=== PATIENT | female | born 1985 | race Caucasian/White ===

== ENCOUNTER 2017-11-01 18:46 | Emergency (ER) | payer OTHER ==
[~2017-11-01] VITALS: Ht 157.5 cm; Wt 98.5 kg
[~2017-11-01 18:46] MED LIST: NAPR550 PO; PREN0.01 PO; SENN1TAB11 PO
[2017-11-01 18:47] VITALS: BP 174/82; PULSE 72; RESP 12; TEMP 98.1; O2SAT 99
[2017-11-01] MEDS ORDERED: cream (19:26)
[2017-11-01] MEDS ORDERED: MULTTAB67 PO (19:26)
[2017-11-01] MEDS ORDERED: CEPHALEXIN MONOHYDRATE 500 MG CAP PO ONE (21:30)
[2017-11-01] MEDS ORDERED: MUPIROCIN 2% OINT 22 GM TUBE TOPICAL ONE (21:30)
[2017-11-01] MEDS ORDERED: MUPI2OIN TOPICAL (21:34)
[2017-11-01] MEDS ORDERED: CEPH-460 PO (21:34)
--- NOTE | 2017-11-01 21:34 | PD ---
HPI Chief Complaint: Skin Problem Time Seen by Provider: 21:24 Travel History International Travel<30 days: No Contact w/Intl Traveler<30days: No Traveled to known affect area: No History of Present Illness HPI 32-year-old female here for evaluation of dry/cracked lips. Patient reports that the symptoms started about a month ago. She states that she was seen at [facility] and was prescribed an ointment that begins within an N, however she cannot recall the name of this ointment. She states that her symptoms are not improving. She complains of burning/itching sensation to her lips. No fevers. No tongue swelling. No difficulty swallowing or breathing. PFSH Past Medical History Medical History: Denies Significant Hx Tetanus Vaccination: < 5 Years Influenza Vaccination: No ?: Not LMP: 11/01/16 Past Surgical History Surgical History: No Previous Surgery Social History Alcohol Use: No Tobacco Use: No Substance Use: No Allergies-Medications (Allergen,Severity, Reaction): Coded Allergies: No Known Allergies (Verified , 01/29/10) Reported Meds & Prescriptions Reported Meds & Active Scripts Active Reported [cream] Multiple Vitamin 1 Tab 1 Tab PO DAILY Review of Systems Except as stated in HPI: all other systems reviewed are Neg Physical Exam Narrative GENERAL: Well-developed, well-nourished, awake, alert, no apparent distress. SKIN: Focused skin assessment warm/dry. HEAD: Atraumatic. Normocephalic. EYES: Pupils equal and round. No scleral icterus. No injection or drainage. ENT: Mucous membranes pink and moist. Upper and lower lips with dryness/ cracked skin with surrounding areas of erythema and honeycombing consistent with impetigo. There are no vesicular lesions. No tongue swelling. No drooling or stridor. Normal pharynx. CARDIOVASCULAR: Regular rate and rhythm. RESPIRATORY: No accessory muscle use. NEUROLOGICAL: Awake and alert. No obvious cranial nerve deficits. Motor grossly within normal limits. Normal speech. PSYCHIATRIC: Appropriate mood and affect; insight and judgment normal. Data Data Last Documented VS Vital Signs Date Time Temp Pulse Resp B/P (MAP) Pulse Ox O2 Delivery O2 Flow Rate FiO2 11/01/17 18:47 98.1 72 12 174/82 (112) 99 Orders Orders Mupirocin 2% Oint (Bactroban 2% Oint) (11/01/17 21:30) Cephalexin (Keflex) (11/01/17 21:30) [facility] Medical Decision Making Medical Screen Exam Complete: Yes Emergency Medical Condition: Yes Differential Diagnosis Impetigo, cellulitis Narrative Course Vital signs reviewed. Patient has signs and symptoms consistent with impetigo surrounding her upper and lower lips. Plan is to start her on mupirocin ointment and Keflex and have her follow-up with a primary care physician this week. She was advised on when to return to the emergency department. She verbalizes understanding and agreement with plan. Diagnosis Primary Impression: Impetigo Referrals: [facility] 3 days Additional Instructions: Follow-up with a primary care physician this week. Return to the emergency department for worsening symptoms or any other concerns. Scripts Cephalexin (Keflex) 500 Mg Cap 500 MG PO Q8H for Infection, #30 CAP 0 Refills Prov: Abraham Kimbrough MD 11/01/17 Mupirocin Topical (Mupirocin Topical) 2 % Oint 1 APPLIC TOPICAL BID for Mgmt Bacterial Infection, #22 GM 0 Refills Prov: Abraham Kimbrough MD 11/01/17 Disposition: 01 DISCHARGE HOME Condition: Stable Abraham Kimbrough MD Nov 01, 2017 21:34
== END 2017-11-01 21:51 | disposition home or self-care (01) ==
LOC: NEPD 18:46
DX: L01.00 Impetigo, unspecified (principal)
CPT/HCPCS: 99284